=== PATIENT | male | born 1960 | race American Indian/Alaskan Native ===

== ENCOUNTER 2022-07-16 10:36 | Emergency (ER) | payer SELFPAY ==
--- NOTE | 2022-07-16 11:33 | Event Note ---
ED Screening Note Date of service: 07/16/22 Time: :29 ED Screening Note: This initial assessment/diagnostic orders/clinical plan/treatment(s) is/are subject to change based on patients health status, clinical progression and re- assessment by fellow clinical providers in the ED. Further treatment and workup at subsequent clinical providers discretion. Patient/guardian urged not to elope from the ED as their condition may be serious if not clinically assessed and managed. Depressed over mother's recent cancer diagnosis. Not suicidal but states he might harm his roommate who is "driving me batty." No plan. Smiling and joking in triage. History hospitalization for depression in the 80s. Initial orders include: My Active Orders 07/16/22 11:26 EKG (12 lead) Stat Mental Health Evaluation ONCE Consult to Mental Health [CONS] Urgent Acetaminophen Stat Basic Metabolic Panel Stat Complete Blood Count Auto Diff Stat Drugs of Abuse Panel, Urine Stat Salicylate Stat Urinalysis Complete Stat 07/16/22 11:27 Blood Alcohol Stat 07/16/22 11:28 Tech to do EKG .once
[2022-07-16 13:15] LABS: BUN/Creatinine Ratio 16; Blood Urea Nitrogen 13 mg/dL (9-20); Calcium 8.9 mg/dL (8.4-10.2); Hemolysis Index 4
[2022-07-16 14:05] LABS: Basophils % (Auto) 0.9 % (0.0-1.8); Eosinophils # (Auto) 0.1 K/mm3 (0.0-0.4); Eosinophils % (Auto) 1.8 % (0.0-4.3); Hematocrit 39.2 % (35.5-45.6); Lymphocytes # (Auto) 1.6 K/mm3 (1.2-5.4); Lymphocytes % (Auto) 47.1 % (13.4-35.0); Mean Corpuscular HGB Conc 33 % (32-34); Mean Corpuscular Volume 93 fl (84-94); Monocytes # (Auto) 0.4 K/mm3 (0.0-0.8); Monocytes % (Auto) 10.6 % (0.0-7.3); Platelet Count 189 K/mm3 (140-440); Red Blood Count 4.24 M/mm3 (3.65-5.03); Red Cell Distribution Width 16.9 % (13.2-15.2)
[2022-07-16 14:32] LABS: Bilirubin,Urine NEG (Negative); Blood,Urine SM (Negative); Color,Urine Yellow (Yellow); Protein,Urine <15 mg/dL mg/dL (Negative)
[2022-07-16 14:34] LABS: Mucus,Urine FEW /HPF; WBC,Urine < 1.0 /HPF (0.0-6.0)
[2022-07-16 14:44] LABS: Amphetamine Screen,Urine Negative; Benzodiazepines Screen,Urine Negative; Cannabinoid Screen,Urine Negative; Cocaine Screen,Urine Negative; Methadone Screen,Urine Negative; Opiate Screen,Urine Negative
--- NOTE | 2022-07-17 06:46 | Emergency Department Report ---
ED General Adult HPI - General Chief complaint: Psych Stated complaint: Depression Time Seen by Provider: 07/17/22 06:39 Source: patient, RN notes reviewed Mode of arrival: Ambulatory Limitations: No Limitations - History of Present Illness Initial comments: This is a pleasant and cooperative 62-year-old gentleman who presents to the department today with a primary complaint of depression. He is not currently homicidal or suicidal. He reports he is depressed because a family member was recently diagnosed with cancer. He currently denies headache, neck pain, chest pain, shortness of breath, vomiting, diarrhea and urinary symptoms. He is not attempted to overdose on anything. He endorses chronic abdominal cramping, and chronic sciatica/radicular pain. He does report that he has a roommate who is developmentally delayed, and sometimes, this roommate annoys him. However, he states that he would never actually physically hurt anybody. He is currently asking for something to eat or drink. -: Gradual Severity scale (0 -10): 2 Consistency: constant Improves with: none Worsens with: other (Thinking about family members illness) - Related Data Home Medications Medication Instructions Recorded Confirmed Last Taken Unobtainable 06/25/18 06/25/18 Unknown Allergies Allergy/AdvReac Type Severity Reaction Status Date / Time No Known Allergies Allergy Verified 07/16/22 11:32 ED Review of Systems ROS: Stated complaint: DEPRESSION/STOMACH PAIN Other details as noted in HPI Constitutional: denies: fever Eyes: denies: eye discharge ENT: denies: epistaxis Respiratory: denies: cough Cardiovascular: denies: chest pain Gastrointestinal: denies: vomiting Genitourinary: denies: dysuria Musculoskeletal: back pain Neurological: other (Radicular pain). denies: weakness Psychiatric: depression. denies: auditory hallucinations, visual hallucinations, homicidal thoughts, suicidal thoughts ED Past Medical Hx - Past Medical History Hx Hypertension: Yes Additional medical history: arthritis. chronic knee pain. bone spurs - Social History Smoking Status: Current Some Day Smoker - Medications Home Medications: Home Medications Medication Instructions Recorded Confirmed Last Taken Type Unobtainable 06/25/18 06/25/18 Unknown History ED Physical Exam - General Limitations: No Limitations General appearance: alert, in no apparent distress - Head Head exam: Present: atraumatic, normocephalic - Eye Eye exam: Present: normal appearance, EOMI. Absent: nystagmus - ENT ENT exam: Present: normal exam, normal orophraynx, mucous membranes moist, normal external ear exam - Neck Neck exam: Present: normal inspection, full ROM. Absent: tenderness, meningismus - Respiratory Respiratory exam: Present: normal lung sounds bilaterally. Absent: respiratory distress, wheezes, rales, rhonchi, stridor, decreased breath sounds - Cardiovascular Cardiovascular Exam: Present: regular rate, normal rhythm, normal heart sounds. Absent: bradycardia, tachycardia, irregular rhythm, systolic murmur, diastolic murmur, rubs, gallop - GI/Abdominal GI/Abdominal exam: Present: soft, normal bowel sounds. Absent: distended, tenderness, guarding, rebound, rigid, pulsatile mass - Rectal Rectal exam: Present: deferred - Extremities Exam Extremities exam: Present: normal inspection, full ROM, other (2+ pulses noted in the bilateral upper and lower extremities. There is no palpable cord. negative Homans sign. Muscular compartments are soft. The pelvis is stable.). Absent: pedal edema, calf tenderness - Back Exam Back exam: Present: normal inspection. Absent: tenderness, CVA tenderness (R), CVA tenderness (L), paraspinal tenderness, vertebral tenderness - Neurological Exam Neurological exam: Present: alert, oriented X3, normal gait, other (No facial droop. Tongue midline. Extraocular movements intact bilaterally. Facial sensation intact to light touch in V1, V2, V3 distribution bilaterally. 5 and a 5 strength in 4 extremities. Sensation intact to light touch in 4 extremities.). Absent: motor sensory deficit - Psychiatric Psychiatric exam: Present: normal affect, normal mood - Skin Skin exam: Present: warm, dry, intact, normal color. Absent: rash ED Course Vital Signs 07/16/22 07/16/22 07/17/22 11:28 21:31 03:54 Temperature 98.9 F 98.6 F Pulse Rate 81 72 84 Respiratory 14 18 Rate Blood Pressure 167/106 Blood Pressure 146/106 [Left] O2 Sat by Pulse 100 99 Oximetry 07/17/22 07/17/22 07/17/22 04:01 04:15 04:31 Temperature Pulse Rate 73 69 72 Respiratory 17 16 15 Rate Blood Pressure 148/98 139/99 148/98 Blood Pressure [Left] O2 Sat by Pulse 98 97 98 Oximetry 07/17/22 07/17/2207/17/22 04:39 04:40 04:45 Temperature Pulse Rate 88 69 Respiratory 18 12 Rate Blood Pressure 159/109 Blood Pressure 148/98 [Left] O2 Sat by Pulse 99 98 98 Oximetry 07/17/22 07/17/22 07/17/22 05:01 05:15 05:31 Temperature Pulse Rate 65 79 63 Respiratory 14 15 14 Rate Blood Pressure 152/102 145/106 159/97 Blood Pressure [Left] O2 Sat by Pulse 97 97 98 Oximetry 07/17/22 07/17/22 07/17/22 05:45 06:01 06:15 Temperature Pulse Rate 63 97 H 66 Respiratory 16 24 15 Rate Blood Pressure 166/96 161/97 161/97 Blood Pressure [Left] O2 Sat by Pulse 95 95 93 Oximetry 07/17/22 07/17/22 07/17/22 06:31 06:45 07:01 Temperature Pulse Rate 65 74 70 Respiratory 14 16 15 Rate Blood Pressure 161/97 166/96 166/96 Blood Pressure [Left] O2 Sat by Pulse 95 98 97 Oximetry 07/17/22 07:15 Temperature Pulse Rate 66 Respiratory 15 Rate Blood Pressure 166/96 Blood Pressure [Left] O2 Sat by Pulse 97 Oximetry - Reevaluation(s) Reevaluation #1: 07/17/22 08:07 Differential diagnosis, including not limited to: Depression, dysthymia, radicular pain, GERD, gastritis, hiatal hernia, behavioral health screening examination Assessment and plan: 62-year-old gentleman, who is afebrile, with reassuring vital signs, clinically sober, with a GCS of 15, with a primary complaint of depression. He does not meet criteria for 1013 hold or involuntary confinement. His abdomen is soft and benign, without rebound, guarding or peritoneal signs. When I walked into the room, the patient is watching TV, on his cell phone, and in no acute distress. His laboratory studies are essentially nonactionable. He was seen by our psychiatric team, and provided outpatient resources. The patient does not appear to have an emergent medical or psychiatric condition present at this time. He has appropriate strength and sensation to his bilateral lower extremities, and his abdomen is soft and benign, without rebound, guarding or peritoneal signs. [id number] Tylenol, Pepcid, or Protonix for radicular pain and nonspecific abdominal pain. Diet and lifestyle modifications - Pulse Oximetry Interpretation Digit-Finger Initial Pulse Oximetry Readin O2 Sat by Pulse Oximetry: 100 Actions Taken: none ED Medical Decision Making - Lab Data Result diagrams: 07/16/22 11:38 07/16/22 11:38 Vital Signs 07/16/22 07/16/22 07/17/22 11:28 21:31 03:54 Temperature 98.9 F 98.6 F Pulse Rate 81 72 84 Respiratory 14 18 Rate Blood Pressure 167/106 Blood Pressure 146/106 [Left] O2 Sat by Pulse 100 99 Oximetry 07/17/22 07/17/22 07/17/22 04:01 04:15 04:31 Temperature Pulse Rate 73 69 72 Respiratory 17 16 15 Rate Blood Pressure 148/98 139/99 148/98 Blood Pressure [Left] O2 Sat by Pulse 98 97 98 Oximetry 07/17/22 07/17/22 07/17/22 04:39 04:40 04:45 Temperature Pulse Rate 88 69 Respiratory 18 12 Rate Blood Pressure 159/109 Blood Pressure 148/98 [Left] O2 Sat by Pulse 99 98 98 Oximetry 07/17/22 07/17/22 07/17/22 05:01 05:15 05:31 Temperature Pulse Rate 65 79 63 Respiratory 14 15 14 Rate Blood Pressure 152/102 145/106 159/97 Blood Pressure [Left] O2 Sat by Pulse 97 97 98 Oximetry 07/17/22 07/17/22 07/17/22 05:45 06:01 06:15 Temperature Pulse Rate 63 97 H 66 Respiratory 16 24 15 Rate Blood Pressure 166/96 161/97 161/97 Blood Pressure [Left] O2 Sat by Pulse 95 95 93 Oximetry 07/17/22 07/17/22 07/17/22 06:31 06:45 07:01 Temperature Pulse Rate 65 74 70 Respiratory 14 16 15 Rate Blood Pressure 161/97 166/96 166/96 Blood Pressure [Left] O2 Sat by Pulse 95 98 97 Oximetry 07/17/22 07:15 Temperature Pulse Rate 66 Respiratory 15 Rate Blood Pressure 166/96 Blood Pressure [Left] O2 Sat by Pulse 97 Oximetry Lab Results 07/16/22 07/16/22 07/16/22 Range/Units 11:38 11:38 11:38 WBC 3.4 L (4.5-11.0) K/mm3 RBC 4.24 (3.65-5.03) M/mm3 Hgb 13.0 (11.8-15.2) gm/dl Hct 39.2 (35.5-45.6) % MCV 93 (84-94) fl MCH 31 (28-32) pg MCHC 33 (32-34) % RDW 16.9 H (13.2-15.2) % Plt Count 189 (140-440) K/mm3 Lymph % (Auto) 47.1 H (13.4-35.0) % [place] % (Auto) 10.6 H (0.0-7.3) % Eos % (Auto) 1.8 (0.0-4.3) % Baso % (Auto) 0.9 (0.0-1.8) % Lymph # (Auto) 1.6 (1.2-5.4) K/mm3 [place] # (Auto) 0.4 (0.0-0.8) K/mm3 Eos # (Auto) 0.1 (0.0-0.4) K/mm3 Baso # (Auto) 0.0 (0.0-0.1) K/mm3 Seg Neutrophils % 39.6 L (40.0-70.0) % Seg Neutrophils # 1.4 L (1.8-7.7) K/mm3 Sodium 135 L (137-145) mmol/L Potassium 3.9 (3.6-5.0) mmol/L Chloride 97.9 L (98-107) mmol/L Carbon Dioxide 23 (22-30) mmol/L Anion Gap 18 mmol/L BUN 13 (9-20) mg/dL Creatinine 0.8 (0.8-1.3) mg/dL Estimated GFR > 60 ml/min BUN/Creatinine Ratio 16 % Glucose 94 (75-100) mg/dL Calcium 8.9 (8.4-10.2) mg/dL Urine Color (Yellow) Urine Turbidity (Clear) Urine pH (5.0-7.0) Ur Specific [place] (1.003-1.030) Urine Protein (Negative) mg/dL Urine Glucose (UA) (Negative) mg/dL Urine Ketones (Negative) mg/dL Urine Blood (Negative) Urine Nitrite (Negative) Urine Bilirubin (Negative) Urine Urobilinogen (<2.0) mg/dL Ur Leukocyte Esterase (Negative) Urine WBC (Auto) (0.0-6.0) /HPF Urine RBC (Auto) (0.0-6.0) /HPF U Epithel Cells (Auto) (0-13.0) /HPF Urine Mucus /HPF Salicylates < 0.3 L (2.8-20.0) mg/dL Urine Opiates Screen Urine Methadone Screen Acetaminophen (10.0-30.0) ug/mL Ur Barbiturates Screen Ur Phencyclidine Scrn Ur Amphetamines Screen U Benzodiazepines Scrn Urine Cocaine Screen U Marijuana (THC) Screen Drugs of Abuse Note Plasma/Serum Alcohol (0-0.07) % 07/16/22 07/16/22 07/16/22 Range/Units 11:38 11:38 Unknown WBC (4.5-11.0) K/mm3 RBC (3.65-5.03) M/mm3 Hgb (11.8-15.2) gm/dl Hct (35.5-45.6) % MCV (84-94) fl MCH (28-32) pg MCHC (32-34) % RDW (13.2-15.2) % Plt Count (140-440) K/mm3 Lymph % (Auto) (13.4-35.0) % [place] % (Auto) (0.0-7.3) % Eos % (Auto) (0.0-4.3) % Baso % (Auto) (0.0-1.8) % Lymph # (Auto) (1.2-5.4) K/mm3 [place] # (Auto) (0.0-0.8) K/mm3 Eos # (Auto) (0.0-0.4) K/mm3 Baso # (Auto) (0.0-0.1) K/mm3 Seg Neutrophils % (40.0-70.0) % Seg Neutrophils # (1.8-7.7) K/mm3 Sodium (137-145) mmol/L Potassium (3.6-5.0) mmol/L Chloride (98-107) mmol/L Carbon Dioxide (22-30) mmol/L Anion Gap mmol/L BUN (9-20) mg/dL Creatinine (0.8-1.3) mg/dL Estimated GFR ml/min BUN/Creatinine Ratio % Glucose (75-100) mg/dL Calcium (8.4-10.2) mg/dL Urine Color Yellow (Yellow) Urine Turbidity Clear (Clear) Urine pH 5.0 (5.0-7.0) Ur Specific [place] 1.016 (1.003-1.030) Urine Protein <15 mg/dl (Negative) mg/dL Urine Glucose (UA) Neg (Negative) mg/dL Urine Ketones Neg (Negative) mg/dL Urine Blood Sm (Negative) Urine Nitrite Neg (Negative) Urine Bilirubin Neg (Negative) Urine Urobilinogen 2.0 (<2.0) mg/dL Ur Leukocyte Esterase Neg (Negative) Urine WBC (Auto) < 1.0 (0.0-6.0) /HPF Urine RBC (Auto) 2.0 (0.0-6.0) /HPF U Epithel Cells (Auto) < 1.0 (0-13.0) /HPF Urine Mucus Few /HPF Salicylates (2.8-20.0) mg/dL Urine Opiates Screen Urine Methadone Screen Acetaminophen 5.0 L (10.0-30.0) ug/mL Ur Barbiturates Screen Ur Phencyclidine Scrn Ur Amphetamines Screen U Benzodiazepines Scrn Urine Cocaine Screen U Marijuana (THC) Screen Drugs of Abuse Note Plasma/Serum Alcohol < 0.01 (0-0.07) % 07/16/22 Range/Units Unknown WBC (4.5-11.0) K/mm3 RBC (3.65-5.03) M/mm3 Hgb (11.8-15.2) gm/dl Hct (35.5-45.6) % MCV (84-94) fl MCH (28-32) pg MCHC (32-34) % RDW (13.2-15.2) % Plt Count (140-440) K/mm3 Lymph % (Auto) (13.4-35.0) % [place] % (Auto) (0.0-7.3) % Eos % (Auto) (0.0-4.3) % Baso % (Auto) (0.0-1.8) % Lymph # (Auto) (1.2-5.4) K/mm3 [place] # (Auto) (0.0-0.8) K/mm3 Eos # (Auto) (0.0-0.4) K/mm3 Baso # (Auto) (0.0-0.1) K/mm3 Seg Neutrophils % (40.0-70.0) % Seg Neutrophils # (1.8-7.7) K/mm3 Sodium (137-145) mmol/L Potassium (3.6-5.0) mmol/L Chloride (98-107) mmol/L Carbon Dioxide (22-30) mmol/L Anion Gap mmol/L BUN (9-20) mg/dL Creatinine (0.8-1.3) mg/dL Estimated GFR ml/min BUN/Creatinine Ratio % Glucose (75-100) mg/dL Calcium (8.4-10.2) mg/dL Urine Color (Yellow) Urine Turbidity (Clear) Urine pH (5.0-7.0) Ur Specific [place] (1.003-1.030) Urine Protein (Negative) mg/dL Urine Glucose (UA) (Negative) mg/dL Urine Ketones (Negative) mg/dL Urine Blood (Negative) Urine Nitrite (Negative) Urine Bilirubin (Negative) Urine Urobilinogen (<2.0) mg/dL Ur Leukocyte Esterase (Negative) Urine WBC (Auto) (0.0-6.0) /HPF Urine RBC (Auto) (0.0-6.0) /HPF U Epithel Cells (Auto) (0-13.0) /HPF Urine Mucus /HPF Salicylates (2.8-20.0) mg/dL Urine Opiates Screen Negative Urine Methadone Screen Negative Acetaminophen (10.0-30.0) ug/mL Ur Barbiturates Screen Negative Ur Phencyclidine Scrn Negative Ur Amphetamines Screen Negative U Benzodiazepines Scrn Negative Urine Cocaine Screen Negative U Marijuana (THC) Screen Negative Drugs of Abuse Note Disclamer Plasma/Serum Alcohol (0-0.07) % - EKG Data -: EKG Interpreted by Me EKG shows normal: sinus rhythm Rate: normal - EKG Data 07/17/22 08:07 The EKG is interpreted at 06: 00 AM Sinus rhythm, with a rate of 65 bpm. There is a normal axis, and a normal P wave axis. There is atrial enlargement. There is left ventricular hypertrophy. This is not a STEMI. Critical care attestation.: If time is entered above; I have spent that time in minutes in the direct care of this critically ill patient, excluding procedure time. ED Disposition Clinical Impression: Depression, Encounter for behavioral health screening Disposition: HOME / SELF CARE / HOMELESS Is pt being admited?: No Does the pt Need Aspirin: No Condition: Good Additional Instructions: Please follow-up with an outpatient mental health specialist within the next week. Avoid consumption of alcohol, tobacco, smoke products and recreational drugs. Avoid consumption of Motrin, ibuprofen, Naprosyn, Aleve, heavy and spicy foods. Alternate ice packs and heat packs as needed for physical pain, and may take [id number] Tylenol, Pepcid, Protonix as needed for physical pain. Follow-up with a primary care doctor within the next 2 weeks. Please return to the emergency room right away with new pain, worsened pain, migration of pain, projectile vomiting, change in mental status, confusion, inability tolerate liquid feeds, new, worsened or different symptoms not present on the initial emergency room evaluation professional and Agency Contacts To help [facility] (10/05[place] Crisis Line: Suicide Prevention Line: Crisis Text Line: Text ``START to 795029 Emergency: 911 Outpatient [facility] Behavioral Health Resources: [place]J[facility]: [facility] [address] [place] [address] [facility] [address] [place] [address] Wednesday thru Wednesday - 8am - 5pm Call to schedule an assessment for mental health and substance abuse programs [facility] Address: [address] [place] [address] Wednesday thru Wednesday- 7am-2pm [facility] Address: [address] [place] [address] Wednesday thru Wednesday: 8:30AM-5PM Professional and Agency Contacts To help [facility] (10/05) [place] Crisis Line: Suicide Prevention Line: Crisis Text Line: Text START to 636748 Emergency: 911 Outpatient [facility] Behavioral Health Resources: MICHELLE: [facility] [address] [place], [place] [address] [place]: [facility] [address] [place] [address] Wednesday thru Wednesday - 8am - 5pm Call to schedule an assessment for mental health and substance abuse programs [facility] Address: [address] [place] [address] Wednesday thru Wednesday- 7am-2pm [facility] Address: [address] [place] [address] Wednesday thru Wednesday: 8:30AM-5PM Referrals: [facility] [Outside] - 3-5 Days [facility] [Outside] - 3-5 Days [facility] [Provider Group] - 3-5 Days Forms: Work/School Release Form(ED)
[2022-07-17 07:50] VITALS: BP 166/96
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
--- NOTE | 2022-07-17 11:34 | Electrocardiograph Report ---
[facility] Test Date: 2022-07-17 Test Time: 05:24:03 Pat Name: JOSE E SANCHEZ Department: Room: Gender: M Rn Radiation: : 1960 Requested By: BRIAN RIVERA Order Number: [id number] Reading MD: Larry Julio Measurements Intervals Gary Rate: 65 P: 59 IN: 158 QRS: 18 QRSD: 84 T: -2 QT: 436 QTc: 456 Interpretive Statements Sinus rhythm Probable left atrial enlargement No previous ECG available for comparison Electronically Signed On 07-17-2022 8:33:54 PDT by Larry Julio
== END 2022-07-17 08:30 | disposition home or self-care (01) ==
LOC: ED 10:36
DX: Z13.30 Encounter for screening examination for mental health and behavioral disorders, unspecified (principal); F32.9 Major depressive disorder, single episode, unspecified; I10 Essential (primary) hypertension; F17.200 Nicotine dependence, unspecified, uncomplicated; G89.29 Other chronic pain; Z79.899 Other long term (current) drug therapy
CPT/HCPCS: 36415; 80048; 80307; 80320; 81001; 85025; 93005; 99283; G0480